=== PATIENT | male | born 1945 | race Caucasian/White ===

== ENCOUNTER → 2023-07-16 10:16 | Outpatient (REF) | payer MEDICARE, SELFPAY | LOC: RAD 10:16 | PROVIDERS: ATTENDING PHYSICIAN Registered Nurse | DX: R20.2 Paresthesia of skin (principal); M79.622 Pain in left upper arm | CPT/HCPCS: 71111; 93971 ==

== ENCOUNTER → 2023-09-07 12:39 | Outpatient (REF) | payer MEDICARE, SELFPAY | LOC: RAD 12:39 | PROVIDERS: ATTENDING PHYSICIAN Family Medicine | DX: R20.0 Anesthesia of skin (principal) | CPT/HCPCS: 72125 ==

== ENCOUNTER → 2023-09-10 08:33 | Outpatient (REF) | payer MEDICARE, SELFPAY | LOC: EMG 08:33 | PROVIDERS: ATTENDING PHYSICIAN Family Medicine | DX: G56.02 Carpal tunnel syndrome, left upper limb (principal) | CPT/HCPCS: 95886; 95909 ==

== ENCOUNTER 2023-10-12 13:04 | Emergency (ER) | payer MEDICARE, SELFPAY ==
[2023-10-12 13:20] VITALS: BP 100/65
--- NOTE | 2023-10-12 13:57 | ED.GENMED ---
History of Present Illness
General
Chief Complaint: Skin Surface Trauma
Source: patient
Time Seen by Provider: 10/12/23 13:53
Travel History
Have you had any contact with someone who has COVID-19?: No
Do you have any symptoms of coronavirus? Fever > 100 degrees, chills, cough, shortness of breath, sore throat, loss of taste or smell, muscle aches, or headache?: No
History of Present Illness
History of Present Illness:
78-year-old male with past medical history of hypertension hyperlipidemia presenting to the emergency department for evaluation after he injured his left hand with a power tool earlier this afternoon. Patient sustained multiple superficial
abrasions to the left index and middle finger. He was concerned for possible fracture so decided to come be evaluated. He reports tetanus vaccine is up-to-date. [id number]. No other injuries sustained.
Past History
Past History
ED Past Medical History: Asthma, HTN, Hypercholesterolemia and Hypothyroidism
ED Past Surgical History: Orthopedic
Social History
Tobacco: Non-smoker
Alcohol: None
Drug: None
Personal:
Living: with family
Review of Systems
Review of Systems
All Other Systems: ROS reviewed and negative except as documented in HPI and ROS
Phy Exam
Physical Exam
Physical Exam:
GENERAL: Alert , in no apparent distress
EYE: conjunctiva clear
Head: Normocephalic atraumatic
NECK: Supple,
ENT: mmm.
LUNGS: no acute respiratory distress
NEUROLOGICAL: Alert and oriented
SKIN: Warm and dry, left hand: multiple superficial abrasions all measuring less than 1 cm on the dorsal aspect of the left index finger and left middle finger. Full range of motion of all digits. Extremities otherwise warm and well-perfused and
neurovascularly intact.
MUSCULOSKELETAL: well perfused.
PSYCH: Normal and appropriate interaction.
Scores
Heart Failure Risk
Heart Failure Risk Score: Not Applicable
Heart Score for Chest Pain Patients
STEMI patient?: Not applicable
Withdrawal Assessment of Alcohol
Withdrawal Assessment Completed?: Not applicable
Course
Orders/Labs/Results
Orders:
Orders
10/12/23 13:26
Electrocardiogram (*1) Urgent
Reason for Study: Chest Pain
10/12/23 13:27
EKG- Treatment ONCE
CR Hand - Left Min 3 Views Urgent
Comment:
Reason For Exam: pain
10/12/23 13:56
Wound Dressing- Treatment ONCE
Location of Wound: left hand
Vital Signs
Initial and Last Documented VS:
Initial Vital Signs
Temp Pulse Resp BP Pulse Ox
98.1 F 76 20 100/65 96
10/12/23 13:20 10/12/23 13:20 10/12/23 13:20 10/12/23 13:20 10/12/23 13:20
Last Documented Vital Signs
Temp Pulse Resp BP Pulse Ox
98.1 F 76 20 100/65 96
10/12/23 13:20 10/12/23 13:20 10/12/23 13:20 10/12/23 13:20 10/12/23 13:20
MDM/Problems Addressed
Differential Diagnosis Includes:
Abrasion, no concern for tendon or nerve injury, minimal concern for fracture
MDM/Problems Addressed:
78-year-old male presenting the emergency department for evaluation following accidental injury to the dorsal aspect of his left hand using a power tool. Injuries are all very superficial and not amenable to suturing. Will irrigate with saline and
apply topical dressings to the affected area. Patient advised on wound care. X-ray of the hand has been ordered from triage and was ultimately negative for any fractures. Stable for discharge home and aware of return precautions.
*Radiology
Radiology exam reviewed: preliminary read by ED provider (No acute fractures)
*Pulse Oximetry
Patient hypoxic: no
*Critical Care Note
Total Time (30-74mins, 75-104mins- exclusive of procedures): Not Applicable
ED Attending Note
-
Portions of this chart may have been created with voice recognition software.� Occasional wrong word or��sound alike� substitutions may have occurred due to the inherent limitations of voice recognition software.
Discharge Plan
Departure
Patient Disposition: Home (Routine Discharge)
Date of Disposition: 10/12/23
Time of Disposition: 13:57
Patient with high blood pressure during this ER visit?: No
Discharge Problem:
Abrasion of left middle finger, Abrasion of left index finger
Instructions: Wound Care (DC)
Referrals:
Lisa Klein MD [Family Provider] -
Interventions
Interventions:
*Risk Screen - Suicide Last Done: 10/12/23 13:20
*General Assessment Last Done: 10/12/23 13:20
*Neglect/Abuse Screening Last Done: 10/12/23 13:20
Discharge Date and Time
Print Language: [id number]
== END 2023-10-12 14:31 | disposition home or self-care (01) ==
LOC: EMR 13:04
PROVIDERS: EMERGENCY PHYSICIAN Student in an Organized Health Care Education/Training Program; FAMILY PHYSICIAN Family Medicine
DX: S60.411A Abrasion of left index finger, initial encounter (principal); S60.413A Abrasion of left middle finger, initial encounter; W29.8XXA Contact with other powered hand tools and household machinery, initial encounter; J45.909 Unspecified asthma, uncomplicated; I10 Essential (primary) hypertension; E78.00 Pure hypercholesterolemia, unspecified; E03.9 Hypothyroidism, unspecified; R94.31 Abnormal electrocardiogram [ECG] [EKG]
CPT/HCPCS: 99283; 73130; 93005

== ENCOUNTER → 2024-08-04 17:58 | Outpatient (REF) | payer MEDICARE, SELFPAY | LOC: MRI 17:58 | PROVIDERS: ATTENDING PHYSICIAN Family Medicine | DX: R60.9 Edema, unspecified (principal) | CPT/HCPCS: 70543; A9575 ==

== ENCOUNTER → 2024-09-01 09:54 | Outpatient (REF) | payer MEDICARE, SELFPAY | LOC: RAD 09:54 | PROVIDERS: ATTENDING PHYSICIAN Family Medicine | DX: M81.0 Age-related osteoporosis without current pathological fracture (principal) | CPT/HCPCS: 77080 ==